=== PATIENT | female | born 1965 | race Two or more races ===

== ENCOUNTER 2023-03-30 06:13 | Day surgery (SDC) | payer OTHER, SELFPAY ==
[2023-03-29 09:57] LABS: Hematocrit 40.5 % (37.0-47.0); Hemoglobin 13.8 g/dL (12.0-16.0); Mean Corp Hgb Conc. 34.1 g/dL (33.0-37.0); Mean Corpuscular Hgb 29.3 pg (27.0-31.0); Mean Platelet Volume 9.4 fL (7.4-10.4); Platelet Count 288 10^3/uL (130-400); Red Blood Cell Count 4.71 10^6/uL (4.20-5.40); Red Cell Dist. Width 13.4 % (11.5-14.5)
[2023-03-29 11:00] LABS: Blood Urea Nitrogen 16 mg/dl (7-17); Calcium 9.3 mg/dl (8.4-10.2); Carbon Dioxide 27 mmol/L (22-30); Chloride 108 mmol/L (98-107); Glucose 91 mg/dl (70-99); Potassium 5.7 mmol/L (3.5-5.1); Sodium 138 mmol/L (135-145); eGFR > 60.00
[2023-03-29 12:39] VITALS: BMI 32.4
[2023-03-30] VITALS (13 sets, daily range): BP systolic 107–133; BP diastolic 65–91; BMI 32.4
[2023-03-30] MEDS: TYLENOL 1000 MG PO (07:41)
[2023-03-30] MEDS: CELEBREX 200 MG PO (07:42)
[2023-03-30] MEDS: NORMOSOL-R 1000 IV (07:42)
== END 2023-03-30 12:34 | disposition home or self-care (01) ==
LOC: SDS 06:13
PROVIDERS: ATTENDING PHYSICIAN Orthopaedic Surgery Hand Surgery; FAMILY PHYSICIAN Internal Medicine
DX: S46.011A Strain of muscle(s) and tendon(s) of the rotator cuff of right shoulder, initial encounter (principal); S46.211A Strain of muscle, fascia and tendon of other parts of biceps, right arm, initial encounter; X58.XXXA Exposure to other specified factors, initial encounter; M75.41 Impingement syndrome of right shoulder; M19.011 Primary osteoarthritis, right shoulder
CPT/HCPCS: 29827; 29828; 36415; 80048; 85027; 93005; C1713